=== PATIENT | male | born 1975 | race Caucasian/White ===

== ENCOUNTER 2016-11-12 19:41 | Inpatient (IN) | payer OTHER ==
--- NOTE | 2016-11-12 20:16 | CPEKG ---
Heart Rate: 53 RR Interval: 1132 P-R Interval: 129 QRSD Interval: 92 QT Interval: 432 QTC Interval: 406 P Wellington: 2 QRS Wellington: 51 T Wave Wellington: 31 EKG Severity - NORMAL ECG - EKG Impression: SINUS RHYTHM Electronically Signed By: Stephania Nobles 12-Nov-2016 21:20:48
[2016-11-12] MEDS ORDERED: HYDROmorphONE/DILAUDID 1 MG/ML SYR IVP ONE ×2 (20:20→21:23)
[2016-11-12] MEDS ORDERED: ONDANSETRON 4 MG/2 ML VIAL IVP ONE (20:20)
[2016-11-12] MEDS ORDERED: NS 1,000 ML IV ONE ×2 (20:23→20:45)
[2016-11-12 20:24] LABS: % IMMATURE GRANULYOCYTES 0.5 % (0.0-1.1); ABSOLUTE IMMATURE GRANULOCYTES 0.07 10^3/uL (0.00-0.10); ADD DIFF? NO; ADD MORPH? NO; ADD SCAN? NO; ATYPICAL LYMPHOCYTE FLAG 0 (0-99); FRAGMENT RBC FLAG 0 (0-99); HEMOGLOBIN 17.1 g/dL (13.7-17.5); LEFT SHIFT FLG 0 (0-99); LIPEMIA HEMOLYSIS FLAG 90 (0-99); MEAN CELL HEMOGLOBIN CONCENTR. 35.6 g/dL (32.4-36.7); MEAN CELL VOLUME 81.5 fL (81.5-99.8); MEAN PLATELET VOLUME 9.4 fL (8.7-11.7); PLATELET CLUMPS FLAG 30 (0-99); PLATELET COUNT 234 10^3/uL (150-400); RED BLOOD CELL COUNT 5.89 10^6/uL (4.40-6.38); RED CELL DISTRIBUTION WIDTH 11.9 % (11.5-15.2)
[2016-11-12 20:42] LABS: ANION GAP 14 mEq/L (8-16); CALCIUM 9.9 mg/dL (8.5-10.4); CARBON DIOXIDE 22 mEq/l (22-31); CHLORIDE 101 mEq/L (97-110); CREATININE 1.4 mg/dL (0.7-1.3); GLOMERULAR FILTRATION RATE 56; GLUCOSE 104 mg/dL (70-100); POTASSIUM 4.4 mEq/L (3.5-5.2); SODIUM 137 mEq/L (134-144)
[2016-11-12 20:54] LABS: TROPONIN I < 0.012 ng/mL (0-0.034)
[2016-11-12] MEDS ORDERED: IOPAMIDOL (ISOVUE-300) 100 ML BTL IV ONE (20:57)
[2016-11-12] MEDS ORDERED: HYDROmorphONE/DILAUDID 1 MG/ML SYR ONE (21:22)
[2016-11-12] MEDS ORDERED: fentaNYL 100 MCG/2 ML INJ IVP ONE (21:50)
[2016-11-12 21:51] LABS: INR 0.93 (0.83-1.16); PROTIME(PATIENT) 12.4 SEC (12.0-15.0)
[2016-11-12 21:52] LABS: APTT 27.7 SEC (23.0-38.0)
[2016-11-12] MEDS ORDERED: ONDANSETRON 4 MG/2 ML VIAL IVP PRN (22:43)
--- NOTE | 2016-11-12 23:04 | EDPHY ---
H & P Stated Complaint: abd pain - Personal History Current Tetanus/Diphtheria Vaccine: Unsure Current Tetanus Diphtheria and Acellular Pertussis (TDAP): Unsure - Medical/Surgical History Hx Asthma: No Hx Chronic Respiratory Disease: No Hx Diabetes: No Hx Cardiac Disease: No Hx Renal Disease: No Hx Cirrhosis: No Hx Alcoholism: No Hx HIV/AIDS: No Other PMH: denies - Social History Smoking Status: Never smoked HPI/ROS: Chief complaint: Abdominal pain History of present illness: This is a 41-year-old male who presents to the emergency department for evaluation of abdominal pain. Patient reports the onset of symptoms this morning. Patient reports yesterday he slipped and fell on ice injuring his low back and buttocks. He has been in significant pain since then. He was attempting to go to the bathroom early this morning and passed out from the pain. When he fell he apparently struck the lower part of his abdomen against the toilet. Since then he has had progressively worsening abdominal pain. States most recently he started urinating blood which is why he came to the emergency department. He does state it is uncomfortable to urinate. He denies other associated signs or symptoms including no vomiting or diarrhea. No other trauma reported. Review of systems: A 10 point review of systems was obtained and other than described above was negative (Alfredito Hamm) - Physical Exam Exam: General Appearance: Alert, nontoxic Eyes: PERRLA Respiratory: Lungs clear to auscultation bilaterally Cardiac: Regular rate and rhythm. Gastrointestinal: Bowel sounds diminished. Abdomen is distended and patient is tender to palpation. There is guarding. Neurological: Alert and oriented. Strength and sensation intact and symmetrical. Skin: No lesions consistent with trauma noted. Musculoskeletal: Head is normocephalic, atraumatic. The spine is nontender to palpation along its entire length. Chest wall intact palpation. Patient moving all extremities without difficulty. (Alfredito Hamm) Constitutional: Initial Vital Signs Temperature (C) 36.6 C 11/12/16 19:47 Heart Rate 94 11/12/16 19:47 Respiratory Rate 16 11/12/16 19:47 Blood Pressure 112/76 11/12/16 19:47 O2 Sat (%) 97 11/12/16 19:47 O2 Delivery Mode Room Air Allergies/Adverse Reactions: No Known Allergies Allergy (Unverified 11/12/16 19:47) Home Medications: Medication Instructions Recorded Ibuprofen [Motrin (*)] 200 - 400 mg PO TID PRN 11/12/16 Medical Decision Making - Diagnostics Imaging: CT scan of the abdomen pelvis does show a small amount of free fluid, concern for intra-abdominal bleeding. (Alfredito Hamm) ED Course/Re-evaluation: Patient is seen in conjunction with my secondary supervising physician Dr. Miladis Calderon. Patient presents to the emergency department for evaluation of abdominal pain after injuring himself in a fall. On presentation his vital signs are stable. However he is very uncomfortable with tenderness to palpation of the abdomen. Blood studies unremarkable. Urinalysis showed blood. CT scan of the abdomen pelvis is concerning for intra abdominal bleed. On- call trauma surgery, Dr. Percy Campbell is consulted. He saw the patient in the emergency department. Ultimately he had additional CT scans performed on patient and determined the patient had a ruptured bladder. On-call Urology, Dr. De Los Santos has been consulted and will see patient this evening. He requests the emergency department place a catheter. Patient is admitted to Trauma Services. Plan has been discussed with the patient who voiced understanding and agreement with it. (Alfredito Hamm) Differential Diagnosis: Included but not limited to soft tissue injury, solid organ injury, hollow organ injury (Alfredito Hamm) Other Provider: I have evaluated and participated in the management of this patient. My co- signature indicates that I have reviewed this chart and that I agree with the findings and the plan of care as documented. My personal history and physical findings include: this is a healthy 41 year old male who fell skiing yesterday, landing on his back. He did not appreciate significant injury at that time, but did have some back pain without leg numbness or weakness. Last evening he drank alcohol and reportedly fainted when he got up to use the bathroom. He has fainted in the past with urination. When he fell he struck his abdomen against the side of the toilet. Since the syncopal episode he has had lower abdominal pain. He has also noted blood in his urine, but has been able to empty is bladder. No further syncopal episode. He denies vomiting, diarrhea, blood in his stools, fever. He presents tonight because of persistent lower abdominal pain. On exam his heart is regular, lungs are clear, abdomen has bowel sounds with tenderness and guarding to palpation in suprapubic region. Vital signs reviewed. CT scan with delayed images shows bladder rupture with extravasation of urine. Surgery was consulted and saw the patient in the ED. Dr. De Los Santos of urology was consulted and requested placement of Starr catheter. Surgical intervention planned. Trauma surgery will be the admitting service. (Miladis Calderon) - Data Points Laboratory Results: Laboratory Results 11/12/16 20:00 11/12/16 20:00 Medications Given: Discontinued Medications Fentanyl (Sublimaze) 100 mcg IVP EDNOW ONE Stop: 11/12/16 21:51 Last Admin: 11/12/16 22:03 Dose: 100 mcg Hydromorphone HCl (Dilaudid) 1 mg IVP EDNOW ONE Stop: 11/12/16 20:21 Last Admin: 11/12/16 20:33 Dose: 1 mg Hydromorphone HCl (Dilaudid) 1 mg IVP EDNOW ONE Stop: 11/12/16 21:24 Last Admin: 11/12/16 21:27 Dose: 1 mg Sodium Chloride (Ns) 1,000 mls @ 0 mls/hr IV ONCE ONE PRN Reason: Wide Open Stop: 11/12/16 20:24 Last Admin: 11/12/16 20:30 Dose: 1,000 mls Sodium Chloride (Ns) 1,000 mls @ 0 mls/hr IV ONCE ONE PRN Reason: Wide Open Stop: 11/12/16 20:46 Last Admin: 11/12/16 21:23 Dose: 1,000 mls Ondansetron HCl (Zofran) 4 mg IVP EDNOW ONE Stop: 11/12/16 20:21 Last Admin: 11/12/16 20:31 Dose: 4 mg Departure - Departure Disposition: [facility] Acute Clinical Impression: Bladder rupture Condition: Fair
--- NOTE | 2016-11-12 23:30 | GHP ---
DATE OF ADMISSION: 11/12/2016 CHIEF COMPLAINT: Abdominal pain. HISTORY OF PRESENT ILLNESS: This is an otherwise healthy 41-year-old male, who presents to the emergency department here with abdominal pain. Per the patient' s report, he was skiing yesterday. He fell, hit his backside. He self- medicated throughout the day, namely with alcohol last evening. It seems like he was fairly intoxicated, got up to urinate, and appears to have what he says is a syncopal episode. At any rate, the patient remembers falling, hitting his belly on the side of the toilet. He also remembers hitting his lip on the toilet as well. He states that he had a fair amount of abdominal pain after that. He was able to urinate and does remember passing gross blood at that point in time, but able to completely empty his bladder. He woke this morning, having a significant amount of abdominal pain, but had some family issues to attend to and was not able to present to the emergency department until this evening. This evening, he presents. He states that he has significantly low pelvic pain without radiation and that throughout the day, he continued to pass blood through his urine. However, this evening, it was clearing somewhat previous. He was able to eat breakfast, had some clear liquids throughout the day, but really has no appetite now secondary to his symptomatic abdominal pain. He states that the pain is low pelvic without radiation, 8/10 in intensity. PAST MEDICAL HISTORY: Does endorse having syncopal episodes in the past related to urination. PAST SURGICAL HISTORY: None. CURRENT MEDICATIONS: Ibuprofen as needed for pain. ALLERGIES: None. REVIEW OF SYSTEMS: A full 10-point system was performed and unless otherwise stated is within normal limits. PHYSICAL EXAM: VITAL SIGNS: Temperature 36.6, blood pressure 141/78, heart rate 95, and he is 96% on room air. GENERAL: He is alert, oriented, in a moderate amount of distress. CV: He has a regular rate and rhythm without any murmurs. LUNGS: Clear. ABDOMEN: Soft, minimally distended. Significantly tender to palpation in all quadrants, namely in the pelvis with rebound tenderness and guarding. LABORATORY DATA: Leukocytosis to 14.6 with a left shift. UA was significant for red cells as well as gross blood. Coags normal. Chemistries normal. Imaging shows an abdominal pelvic CT scan with delayed images in addition to having extravasation from the urinary bladder free into the abdomen. ASSESSMENT AND PLAN: A 41-year-old male status post fall from standing with an acute intraperitoneal bladder rupture. I have discussed the findings with the patient. I am concerned about his exam as I do feel that he is concerning from a surgical standpoint, and feel that he needs repair expeditiously as he has a surgical abdomen. I have discussed the case with the environmental engineering technician urologist, Dr De Los Santos and will plan to proceed to the OR [facility] for repair. /[id number]/MODL MTDD
[2016-11-12] MEDS ORDERED: CEFAZOLIN 2 GM/DEXTROSE/100 ML BAG IV ONE (23:51)
[2016-11-12] MEDS ORDERED: fentaNYL 250 MCG/5 ML INJ ONE (23:54)
[2016-11-12] MEDS ORDERED: PROPOFOL/EMULSION 500 MG/50 ML BOTTLE IV ONE (23:55)
[2016-11-13] MEDS ORDERED: BUPIVACAINE 0.5% 30 ML SDV ONE (00:14)
[2016-11-13] MEDS ORDERED: ONDANSETRON 4 MG/2 ML VIAL ONE ×2 (00:31→02:59)
[2016-11-13] MEDS ORDERED: fentaNYL 100 MCG/2 ML INJ ONE ×2 (00:31→02:14)
[2016-11-13] MEDS ORDERED: DEXAMETHASONE 4 MG/ML VIAL ONE (00:31)
[2016-11-13] MEDS ORDERED: METHYLENE BLUE 1% 100 MG/10 ML VIAL ONE (00:36)
[2016-11-13] MEDS ORDERED: PROPOFOL 200 MG/20 ML VIAL ONE (01:16)
--- NOTE | 2016-11-13 02:02 | POSTOPPROG ---
Post Op Note Date of Operation: 11/13/16 Surgeon: Nickolas De Los Santos Commercial Marketing Specialist: Shannan Anesthesiologist: William Anesthesia: GET(General Endotracheal) Pre-op Diagnosis: bladder perforation Post-op Diagnosis: same Procedure: Ex-lap, repair of bladder perforation Findings: small anterior bladder perf, repaired primarily in layers Inf/Abcess present in the surg proc area at time of surgery?: No EBL: 50-100 Drains: Jeison Moses
[2016-11-13] MEDS ORDERED: NALOXONE HCL 0.4 MG/ML INJ IVP PRN (02:03)
[2016-11-13] MEDS ORDERED: HYDROmorphONE/DILAUDID 6 MG/30 ML PCA IV PRN (02:03)
[2016-11-13] MEDS ORDERED: HYDROmorphONE/DILAUDID 1 MG/ML SYR ONE (02:23)
--- NOTE | 2016-11-13 02:25 | POSTOPPROG ---
Post Op Note Date of Operation: 11/13/16 Surgeon: Nickolas De Los Santos Silver Service Waiter: Zeb - Trauma Anesthesiologist: Kartik Anesthesia: GET(General Endotracheal) Pre-op Diagnosis: bladder rupture Post-op Diagnosis: same Indication: as above, trauma Procedure: open ex lap and surgical exploration of pelvis, repair or bladder injury Findings: leak identified and repaired Inf/Abcess present in the surg proc area at time of surgery?: No Depth: Deep Incisional (Fascial) EBL: Minimal Complications: none Drains: Jeison Moses Specimen(s): nonne
[2016-11-13] MEDS ORDERED: PROMETHAZINE HCL 25 MG/ML INJ ONE (02:29)
--- NOTE | 2016-11-13 02:45 | GCON ---
DATE OF CONSULTATION: 11/12/2016 CHIEF COMPLAINT: Surgical abdomen with bladder rupture after a fall. HISTORY OF PRESENT ILLNESS: An otherwise healthy 41-year-old male presents to the emergency room with abdominal pain severe. He had fallen and fell against the toilet after a syncopal episode. He was found against the wall, and his belly hit the side of the toilet. He has had significant abdominal pain since then. He was passing gross blood, and he did feel he was able to empty his bladder, but had significant belly pain since, and for the last 24 hours it has worsened, presented to the emergency room and a CT scan with delayed images noted extravesical contrast and intraperitoneal urine leak. PAST MEDICAL HISTORY: He has had syncopal episodes in the past related to urination. PAST SURGICAL HISTORY: None. MEDICATIONS: Currently none. ALLERGIES: None. REVIEW OF SYSTEMS: A 10-point review of systems was otherwise negative. PHYSICAL EXAMINATION: VITAL SIGNS: T-max is 36.6, blood pressures are 140s over 70s, heart rate is 90s, 96% on room air. GENERAL: Alert and oriented in moderate to severe distress. He is physically guarding his abdomen with his hand. NECK: Supple. No lymphadenopathy. Trachea is midline. CHEST: No retractions, no pursed lip breathing. No cyanosis. CARDIAC: No cyanosis. No lower extremity edema. ABDOMINAL EXAM: Tender, firm, moderately distended. He does have rebound tenderness and guarding. MUSCULOSKELETAL: Moving all 4 extremities well. INTEGUMENT: No rashes or lesions. PSYCHIATRIC: Normal mood and affect. LAB DATA: Shows a white blood cell count of 14.6. UA shows red cells. His creatinine is normal. IMAGING: CT scan shows delayed images with externalization of contrast from the bladder into the anterior space of Retzius AND tracking up along the bladder. ASSESSMENT/PLAN: A 41-year-old male status post fall into the toilet with acute intraperitoneal urine extravasation. This is likely an extraperitoneal rupture that is tracking into his peritoneum. Either way given a surgical abdomen, I recommend surgical intervention, and I have discussed this with the trauma service, and they agree. We will proceed with the OR. I also discussed this with the patient and his . They are all in agreement, and we will move forward with surgery. /[id number]/MODL MTDD
--- NOTE | 2016-11-13 03:15 | GOP ---
DATE OF OPERATION: 11/13/2016 SURGEON: Nickolas De Los Santos MD PROCESS SPECIALIST: Percy Campbell MD with trauma. ANESTHESIA: General endotracheal anesthesia. ANESTHESIOLOGIST: JADE PREOPERATIVE DIAGNOSIS: Bladder rupture. POSTOPERATIVE DIAGNOSIS: Bladder rupture. PROCEDURE PERFORMED: An open exploratory laparotomy and surgical exploration of the pelvis with repair of anterior bladder injury in a 2-layer closure. FINDINGS: Leak was identified and repaired. Several liters of urine evacuated from the abdomen. SPECIMENS: None. ESTIMATED BLOOD LOSS: Minimal. INDICATIONS: As above, physical trauma leading to bladder rupture. DESCRIPTION OF PROCEDURE: COMPLICATIONS: None. DRAINS: LAURA drain. OPERATIVE INDICATIONS: The patient had a syncopal episode and fell into his toilet and ruptured his bladder. CT scan identified extravasation of contrast on delayed images. He is a very pleasant 41-year-old male, who has had 24 hours of severe abdominal pain and was brought to the operating room for management of this operative procedure. Patient was identified by name, medical record number, and wrist band. Brought to the operating room, placed on the table, prepped and draped in standard surgical fashion. A 9 cm infraumbilical incision was made in the midline, carried down through Camper's and Vivian's fascia. The rectus diastasis was identified this was split and carried down into the transversalis which was opened up. There were very bizarre planes given the severe amount of fluid buildup along the tissues. Nonetheless, we were able to open up the perineum, identify the extraperitoneal region of the bladder and the intraperitoneal region of the bladder, mobilized the bladder along the medial umbilical ligaments. Urachus was taken as well and we explored the bladder and surrounding tissues. There was no evidence of bowel injury; and, after careful mobilization of the entire bladder, we identified a large rent down at the bladder neck, very close to the prostate, and this was anterior. This was closed in 2 layers with 3-0 Vicryl and 2-0 Vicryl. We irrigated with methylene blue after this suture repair and there was no leak noted. An 18-Cameroonian Starr catheter was placed. Two LAURA drains were placed. We closed the incision with 0 PDS x2 and belen. Drains were secured into place. Starr catheter was secured and the patient was awakened from anesthesia, brought to the recovery in stable condition. /[id number]/MODL MTDD
[2016-11-13] MEDS: D5W 1/2 NS 1,000 ML IV SCH ×2 (03:32→20:17)
[2016-11-13 08:40] LABS: HEMATOCRIT 41.7 % (40.0-51.0); HEMOGLOBIN 14.6 g/dL (13.7-17.5); MEAN CELL VOLUME 82.9 fL (81.5-99.8); RED BLOOD CELL COUNT 5.03 10^6/uL (4.40-6.38); RED CELL DISTRIBUTION WIDTH 12.1 % (11.5-15.2)
[2016-11-13 08:51] LABS: ANION GAP 9 mEq/L (8-16); CALCIUM 8.6 mg/dL (8.5-10.4); CARBON DIOXIDE 24 mEq/l (22-31); CHLORIDE 105 mEq/L (97-110); GLOMERULAR FILTRATION RATE > 60; GLUCOSE 166 mg/dL (70-100); SODIUM 138 mEq/L (134-144)
[2016-11-13] MEDS ORDERED: HYDROmorphONE/DILAUDID 1 MG/ML SYR IVP PRN (11:58)
--- NOTE | 2016-11-13 12:07 | TRAUMAPN ---
- Problem/Surgery Performed (1) SI (sacroiliac) pain Assessment/Plan: C/o right SI pain. CT does not demonstrate any findings. Will add flexeril Assessment/Plan: Bladder repaired last PM. Patient c/o incisional pain. LAURA drains have a light serosanguineous drainage. urine clear. Will adjust pain medications Subjective: c/o incisional pain Objective: Vital Signs Temp Pulse Resp BP Pulse Ox 36.8 C 64 18 117/68 95 11/13/16 10:48 11/13/16 10:48 11/13/16 10:48 11/13/16 10:48 11/13/16 10:48 Laboratory Results 11/13/16 08:10 11/13/16 08:10 11/12/16 11/13/16 11/14/16 05:59 05:59 05:59 Intake Total 3955.2 Output Total 905 1585 Balance 3050.2 -1585 PT 12.4 SEC (12.0-15.0) 11/12/16 20:00 INR 0.93 (0.83-1.16) 11/12/16 20:00 Physical Exam - Physical Exam General Appearance: WD/WN, alert, mild distress Neck: non-tender, full range of motion, supple Respiratory: chest non-tender, lungs clear, normal breath sounds Cardiac/Chest: regular rate, rhythm Abdomen: non-tender, soft, distended, other (Hypoactive Bowel sounds; Incision well approximated) Male Genitalia: deferred Rectal: deferred Back: Normal inspection Skin: warm/dry Neuro/Psych: no motor/sensory deficits, alert, oriented x 3 Time Spent w/Patient (minutes): 25
[2016-11-13] MEDS: KETOROLAC 30 MG/1 ML SDV IVP SCH ×3 (13:07→23:45)
[2016-11-13] MEDS: ACETAMINOPHEN 500 MG TAB PO SCH ×2 (13:13→20:16)
[2016-11-13] MEDS: CYCLOBENZAPRINE 10 MG TAB PO PRN (20:17)
[2016-11-14] MEDS: KETOROLAC 30 MG/1 ML SDV IVP SCH ×4 (04:35→23:44)
[2016-11-14] MEDS: ACETAMINOPHEN 500 MG TAB PO SCH ×3 (04:35→21:50)
[2016-11-14 05:18] LABS: HEMATOCRIT 39.5 % (40.0-51.0); HEMOGLOBIN 13.4 g/dL (13.7-17.5); MEAN CELL HEMOGLOBIN 29.3 pg (27.9-34.1); MEAN CELL HEMOGLOBIN CONCENTR. 33.9 g/dL (32.4-36.7); MEAN CELL VOLUME 86.2 fL (81.5-99.8); RED BLOOD CELL COUNT 4.58 10^6/uL (4.40-6.38); RED CELL DISTRIBUTION WIDTH 12.1 % (11.5-15.2)
[2016-11-14 05:39] LABS: ANION GAP 6 mEq/L (8-16); CALCIUM 8.5 mg/dL (8.5-10.4); CARBON DIOXIDE 26 mEq/l (22-31); CHLORIDE 107 mEq/L (97-110); CREATININE 0.7 mg/dL (0.7-1.3); GLOMERULAR FILTRATION RATE > 60; GLUCOSE 95 mg/dL (70-100); POTASSIUM 4.2 mEq/L (3.5-5.2); SODIUM 139 mEq/L (134-144)
--- NOTE | 2016-11-14 11:32 | TRAUMAPN ---
- Problem/Surgery Performed (1) SI (sacroiliac) pain Assessment/Plan: POD#1 11/13/2016 C/o right SI pain. CT does not demonstrate any findings. Will add flexeril. P0D#2 11/14/2016 Pain control excellent. No new complaints. Minimal hypogastric wound drainage. JPs average 75cc each for last 24 hours. Drainage more serous today. Nothing further to add. Will transfer care to Dr. De Los Santos Assessment/Plan: Bladder repaired last PM. Patient c/o incisional pain. LAURA drains have a light serosanguineous drainage. urine clear. Will adjust pain medications Subjective: No stool yet Objective: Vital Signs Temp Pulse Resp BP Pulse Ox 36.6 C 55 L 18 101/67 95 11/14/16 07:15 11/14/16 07:15 11/14/16 07:15 11/14/16 07:15 11/14/16 07:15 Laboratory Results 11/14/16 05:07 11/14/16 05:07 11/13/16 11/14/16 11/15/16 05:59 05:59 05:59 Intake Total 3955.2 4689 Output Total 905 3485 Balance 3050.2 1204 PT 12.4 SEC (12.0-15.0) 11/12/16 20:00 INR 0.93 (0.83-1.16) 11/12/16 20:00 Physical Exam - Physical Exam General Appearance: WD/WN, alert, no apparent distress Neck: non-tender, full range of motion, supple Respiratory: chest non-tender, lungs clear, normal breath sounds Cardiac/Chest: regular rate, rhythm Abdomen: non-tender, soft, other (hypoactive bowel sounds. Incision with minimal drainage.) Male Genitalia: deferred Rectal: deferred Back: Normal inspection Skin: normal color, warm/dry Extremities: normal range of motion, non-tender, normal inspection Neuro/Psych: no motor/sensory deficits, alert, normal mood/affect, oriented x 3 Time Spent w/Patient (minutes): 25
[2016-11-14] MEDS: CYCLOBENZAPRINE 10 MG TAB PO PRN (12:29)
[2016-11-15] MEDS: KETOROLAC 30 MG/1 ML SDV IVP SCH ×2 (05:23→11:27)
[2016-11-15] MEDS: ACETAMINOPHEN 500 MG TAB PO SCH (05:23)
[2016-11-15 08:40] VITALS: RESP 12; O2SAT 97
--- NOTE | 2016-11-15 09:43 | SOAPPROG ---
SOAP Progress Note Assessment/Plan: Assessment: S/p Bladder rupture and repair - dc home w nichols teaching Plan:as above 11/15/16 09:42 Subjective: doing well - Objective: Vital Signs Temp Pulse Resp BP Pulse Ox 36.6 C 65 12 119/73 97 11/15/16 08:37 11/15/16 08:37 11/15/16 08:37 11/15/16 08:37 11/15/16 08:37 Laboratory Results 11/14/16 05:07 11/14/16 05:07 11/14/16 11/15/16 11/16/16 05:59 05:59 05:59 Intake Total 4689 2800 Output Total 3485 2230 Balance 1204 570 PT 12.4 SEC (12.0-15.0) 11/12/16 20:00 INR 0.93 (0.83-1.16) 11/12/16 20:00 - Pending Discharge Pending Discharge Within 24 Hours: Yes Pending Discharge Date: 11/16/16 Pending Discharge Time: 11:00 Physical Exam - Physical Exam EENT: PERRL/EOMI Neck: non-tender Respiratory: chest non-tender Cardiac/Chest: normal peripheral pulses Abdomen: normal bowel sounds Skin: normal color Lymphatic: no adenopathy Extremities: normal range of motion ICD10 Worksheet Patient Problems: Problems Problem Status Onset Bladder rupture Acute SI (sacroiliac) pain Acute
--- NOTE | 2016-11-15 10:24 | GPROG ---
DATE OF SERVICE: 11/14/2016 SUBJECTIVE: Postop day #1 status post bladder rupture with repair. He is doing well. His pain is still significant, which is not surprising given the amount of urine that leaked into his abdomen ca using a chemical peritonitis. Feeling better than yesterday, but still with abdominal pain. His J- P outputs have been significant, but not concerning, again given the significant amount of urine sat urating his abdominal tissues. ASSESSMENT: The Jeison-Moses drains are serosanguineous. PLAN: Will adjust pain medications. Likely home tomorrow. PHYSICAL EXAM: GENERAL: Alert, in no acute distress. NECK: Nontender. No lymphadenopathy. CHES T: No retractions, pursed lip breathing or cyanosis. ABDOMEN: Soft, nontender, nondistended. The re is some tenderness in the pelvic area around the incision, but this is not surprising or concerni ng. MALE GENITALIA: The genitals are normal. The Starr is clean. RECTAL: Deferred. BACK: Norm al inspection. SKIN: No rashes or lesions. EXTREMITIES: Good range of motion. NEUROLOGIC/PSYCHI ATRIC: Normal mood and affect. ASSESSMENT AND PLAN: This is a 41-year-old male postop day 2 from the bladder perforation. He is to be discharged home likely tomorrow. Time spent with the patient is approximately 25 minutes. /[id number]/MODL
[2016-11-15 12:28] VITALS: BP 124/76; PULSE 69; TEMP 97.9
== END 2016-11-15 13:49 | disposition home or self-care (01) | DRG 653 ==
LOC: F1N 11-13 03:07
PROVIDERS: ADMIT Urology; ATTEND Urology
DX: S37.29XA Other injury of bladder, initial encounter (principal); K65.8 Other peritonitis; R55 Syncope and collapse; V00.321A Fall from snow-skis, initial encounter; Y93.23 Activity, snow (alpine) (downhill) skiing, snowboarding, sledding, tobogganing and snow tubing; Y92.838 Other recreation area as the place of occurrence of the external cause; W01.190A Fall on same level from slipping, tripping and stumbling with subsequent striking against furniture, initial encounter; Y92.012 Bathroom of single-family (private) house as the place of occurrence of the external cause
CPT/HCPCS: 92507-GN; 92610-GN; 96374; 97116-GP; 97162-GP; 97165-GO; 97530-GO; 97530-GP; 97535-GO; J0690; J1100; J1170; J1885; J2405; J2550; J2704; J3010; Q9967; Q9968